=== PATIENT | male | born 1995 | race African-American/Black ===

== ENCOUNTER 2019-02-03 21:01 | Emergency (ER) | payer SELFPAY ==
[~2019-02-03] VITALS: Ht 170.2 cm; Wt 61.2 kg
--- NOTE | 2019-02-03 23:47 | NUR ---
DR. PAGE IN TRIAGE TO ASSESS PT.
== END 2019-02-04 00:12 | disposition left against medical advice (07) ==
LOC: ER 21:01
DX: L02.31 Cutaneous abscess of buttock (principal)